=== PATIENT | female | born 1965 ===

== ENCOUNTER → 2022-09-10 | Outpatient (CLI) | payer OTHER ==
[2022-09-10 13:08] LABS: BASOPHILS ABSOLUTE AUTO 0.04 K/mm3 (0.00-0.23); BASOPHILS PERCENT AUTO 1 % (0-2); EOSINOPHILS ABSOLUTE AUTO 0.14 K/mm3 (0.00-0.68); EOSINOPHILS PERCENT AUTO 2 % (0-6); Hematocrit 45.3 % (33.0-51.0); Hemoglobin 15.5 g/dL (11.5-16.0); IMMATURE GRAN ABSOLUTE AUTO 0.01 K/mm3 (0.00-0.10); IMMATURE GRAN PERCENT AUTO 0 % (0-1); LYMPHOCYTES ABSOLUTE AUTO 2.03 K/mm3 (0.84-5.20); LYMPHOCYTES PERCENT AUTO 30 % (21-46); MONOCYTES ABSOLUTE AUTO 0.43 K/mm3 (0.16-1.47); MONOCYTES PERCENT AUTO 6 % (4-13); Mean Corpuscular HGB Conc 34.2 g/dL (31.5-36.5); Mean Corpuscular Volume 96 fL (80-100); NEUTROPHILS ABSOLUTE AUTO 4.17 K/mm3 (1.96-9.15); NEUTROPHILS PERCENT AUTO 61 % (41-73); Platelet Count 209 K/mm3 (150-400); RDW Coefficient Variation 12.2 % (11.7-14.2); RDW Standard Deviation 42.8 fL (35.1-46.3); White Blood Cell Count 6.82 K/mm3 (4.00-11.30)
[2022-09-10 13:21] LABS: Albumin, Blood 4.1 g/dL (3.4-5.0); Albumin/Globulin Ratio 0.8 (0.8-1.8); Bilirubin, Total 0.6 mg/dL (0.1-1.0); Bun/Creatinine Ratio 12.9 (12.0-20.0); Calcium, Blood 9.4 mg/dL (8.5-10.1); Creatinine, Blood 0.62 mg/dL (0.40-1.00); Potassium, Blood 3.9 mmol/L (3.5-5.5); Total Protein, Blood 9.1 g/dL (6.4-8.2)
== END ==
LOC: LAB 13:00 → LAB SHORT 13:00
PROVIDERS: Chiropractor
DX: I88.9 Nonspecific lymphadenitis, unspecified (principal)
CPT/HCPCS: 80053; 85025

== ENCOUNTER 2022-12-31 11:09 | Emergency (ER) | payer OTHER ==
[~2022-12-31] VITALS: Ht 167.6 cm; Wt 61.2 kg
[2022-12-31] MEDS ORDERED: PEPCID40 MG PO (11:34)
[2022-12-31] MEDS ORDERED: ONDA4ODT MM (14:16)
[2022-12-31] MEDS ORDERED: AMOCLA875 PO (14:16)
[2022-12-31] MEDS ORDERED: DIPHEN12.5 MG/7 PO (14:16)
[2022-12-31] MEDS ORDERED: ACETAMINOP160 MG/51 PO (14:16)
== END 2022-12-31 14:24 | disposition home or self-care (01) ==
LOC: ER 11:09
DX: K14.0 Glossitis (principal); Z87.891 Personal history of nicotine dependence
CPT/HCPCS: 99282

== ENCOUNTER → 2023-07-27 | Outpatient (CLI) | payer OTHER ==
[~2023-07-27] MED LIST: ACETAMINOP160 MG/51 PO; AMOCLA875 PO; DIPHEN12.5 MG/7 PO; ONDA4ODT MM; PEPCID40 MG PO
[2023-08-03 18:09] LABS: HPV APTIMA Negative (Negative)
== END ==
LOC: LAB SHORT 12:00 → LAB 12:00 → LAB SHORT 07-28 18:00
PROVIDERS: Registered Nurse
DX: Z01.419 Encounter for gynecological examination (general) (routine) without abnormal findings (principal)
CPT/HCPCS: 87624; 88175

== ENCOUNTER 2024-08-30 09:34 | Day surgery (SDC) | payer MEDICARE, OTHER ==
[~2024-08-30] VITALS: Ht 167.6 cm; Wt 137.4 kg
[~2024-08-30 09:34] MED LIST changes: +Lactated Ringer's 1,000 ML IV ONE; +propofoL 50 ML IV ONE
[2024-08-30] MEDS ORDERED: TRAZ50 (09:46)
[2024-08-30] MEDS ORDERED: SERT50 (09:48)
[2024-08-30] MEDS ORDERED: Lactated Ringer's 1,000 ML IV ONE (10:37)
--- NOTE | 2024-08-30 10:37 | NUR ---
08/30/24 Mirlande Arrington PT. VERBALIZES PAIN IN THROAT RATING "8".
[2024-08-30 11:24] VITALS: BP 116/67
== END 2024-08-30 11:33 | disposition home or self-care (01) ==
LOC: ORSCSDS 09:34
PROVIDERS: Internal Medicine Gastroenterology
PROC: 0DJ08ZZ Inspection of Upper Intestinal Tract, Via Natural or Artificial Opening Endoscopic (ICD-10-PCS; principal; 2024-08-30 10:45)
PROC: 0D757ZZ Dilation of Esophagus, Via Natural or Artificial Opening (ICD-10-PCS; principal; 2024-08-30 10:45)
DX: R13.12 Dysphagia, oropharyngeal phase (principal); K22.2 Esophageal obstruction; K44.9 Diaphragmatic hernia without obstruction or gangrene; I10 Essential (primary) hypertension; K21.9 Gastro-esophageal reflux disease without esophagitis; Z79.899 Other long term (current) drug therapy
CPT/HCPCS: J2704; J7120